=== PATIENT | female | born 1955 | race Caucasian/White ===

== ENCOUNTER 2017-03-22 18:54 | Emergency (ER) | payer OTHER ==
[2017-03-22 21:03] VITALS: BP 103/65
[2017-03-22 23:38] LABS: Urine Bacteria 1+ (Absent); Urine Bilirubin Negative (Negative); Urine Glucose Negative (Negative); Urine Nitrite Positive (Negative)
--- NOTE | 2017-03-23 00:21 | ED ---
GI/ HPI - HPI Summary HPI Summary: Patient sent to ED by previous ED which she was seen in yesterday after CC of bilateral flank pain, urgency, burning and frequency. An US of the kidneys showed moderate left hydronephrosis with no solid mass or obstruction identified. Patient has a history of pyelonephritis, nephrolithiasis and hydronephrosis within the past year. She also has associated UTI's. She was called this afternoon today and was told to come to the ED based on the findings of the US. It is unclear if they had known this information ahead of time or not prior to discharging her. She was given scripts for clindamycin and pyrimidine. She continues with urgency and frequency, but denies burning so has not taken the pyrimidine recently. She continues to have flank pain, but is localized to the left. Denies abdominal pain. Denies fevers, but endorses chills. [place] history [place] bladder [place] - History of Current Complaint Chief Complaint: EDUrogenitalProblems Time Seen by Provider: 03/22/17 20:45 Stated Complaint: PAINFUL URINATION Hx Obtained From: Patient Onset/Duration: Started Days Ago Timing: Constant Severity: Moderate Current Severity: Moderate Pain Intensity: 5 Location of Pain: Flank Pain Characteristics: Cramping Pain Radiates to: Flank Associated Signs and Symptoms: Positive: UTI Symptoms Alleviating Factor(s): Nothing - Risk Factors GI Bleed Risk Factor(s): Negative Spontaneous AB Risk Factor(s): Negative Placental Abruption Risk Factor(s): Negative Ectopic Risk Factor(s): Maternal Age ^ 30 Ovarian Torsion Risk Factor(s): Negative - Allergy/Home Medications Allergies/Adverse Reactions: Allergies Allergy/AdvReac Type Severity Reaction Status Date / Time No Known Allergies Allergy Verified 03/22/17 20:58 PMH/Surg Hx/FS Hx/Imm Hx Previously Healthy: Yes - Surgical History Surgery Procedure, Year, and Place: BLADDER PROLAPSE - Immunization History Hx Pertussis Vaccination: No Immunizations Up to Date: Yes Infectious Disease History: No Infectious Disease History: Denies: Traveled Outside the [place] in Last 30 Days - Social History Occupation: Unemployed Lives: With Family Alcohol Use: None Hx Substance Use: No Substance Use Type: Reports: None Hx Tobacco Use: No Smoking Status (MU): Never Smoked Tobacco Do You Chew or Dip Tobacco: No Review of Systems Positive: Chills Eyes: Negative Cardiovascular: Negative Respiratory: Negative Gastrointestinal: Negative Positive: see HPI, dysuria, frequency, flank pain, urgency Musculoskeletal: Negative Skin: Negative Neurological: Negative All Other Systems Reviewed And Are Negative: Yes Physical Exam Triage Information Reviewed: Yes Vital Signs On Initial Exam: Initial Vitals Temp Pulse Resp BP Pulse Ox 97.4 F 71 20 132/68 100 03/22/17 19:02 03/22/17 19:02 03/22/17 19:02 03/22/17 19:02 03/22/17 19:02 Vital Signs Reviewed: Yes Appearance: Positive: Well-Appearing, No Pain Distress, Well-Nourished Skin: Positive: Warm, Skin Color Reflects Adequate Perfusion Head/Face: Positive: Normal Head/Face Inspection Eyes: Positive: WEI, Conjunctiva Clear Neck: Positive: Supple, No Lymphadenopathy Respiratory/Lung Sounds: Positive: Clear to Auscultation, Breath Sounds Present Cardiovascular: Positive: RRR, Pulses are Symmetrical in both Upper and Lower Extremities Abdomen Description: Positive: Soft Musculoskeletal: Positive: Normal Neurological: Positive: Sensory/Motor Intact, Alert, Oriented to Person Place, Time, Speech Normal Psychiatric: Positive: Normal AVPU Assessment: Alert - Rodríguez Coma Scale Coma Scale Total: 15 Diagnostics - Vital Signs Vital Signs Temp Pulse Resp BP Pulse Ox 03/22/17 20:51 98.9 F 65 17 103/65 95 03/22/17 19:02 97.4 F 71 20 132/68 100 - Laboratory Lab Results: Lab Results 03/22/17 Range/Units 19:03 Urine Color Tiffanie Urine Appearance Clear Urine pH 6.0 (5-9) Ur Specific [place] 1.015 (1.010-1.030) Urine Protein Negative (Negative) Urine Ketones Negative (Negative) Urine Blood Negative (Negative) Urine Nitrate Positive H (Negative) Urine Bilirubin Negative (Negative) Urine Urobilinogen Positive H (Negative) Ur Leukocyte Esterase 2+ H (Negative) Urine WBC (Auto) 3+(>20/hpf) H (Absent) Urine RBC (Auto) 2+(6-10/hpf) H (Absent) Ur Squamous Epith Cells Present H (Absent) Urine Bacteria 1+ H (Absent) Urine Glucose Negative (Negative) Urine Ascorbic Acid * H (Negative) Result Diagrams: 03/23/17 00:45 03/23/17 00:45 Lab Statement: Any lab studies that have been ordered have been reviewed, and results considered in the medical decision making process. GIGU Course/Dx - Course Course Of Treatment: Although US performed yesterday at [facility] ED, will perform CT abd/pelvis to look for calculi. UA performed. WBC and leuks seen. Labs WNL. Patient experiencing urgency, frequency and pain on urination. Dark urine noted. No abnormal vaginal discharge or bleeding. CVA tenderness bilaterally. CT shows 5.2 X 2.2 mm obstructing distal left ureteral stone at the left UVJ. Moderate to severe left hydronephrosis. No Urology oncall at [facility]. [facility] called who agreed to accept patient, but stated d/t stable condition with normal white count and afebrile, we should send home. Spoke with Dr. Betts who agreed that we can send a patient home with anything less than 6mm ([facility] stated 8mm). Provider spoke with patient who preferred to go home despite the providers suggestion to be transferred. Ok to send home if she follows up with Dr. Coello and go to [facility] is symptoms worsen during the weekend. - Diagnoses Differential Diagnoses - Female: Ovarian Cyst, Pyelonephritis, Urinary Tract Infection, Ureteral Calculi Provider Diagnoses: Hydronephrosis, Obstruction of left ureteropelvic junction due to stone Discharge - Discharge Plan Condition: Stable Disposition: HOME Prescriptions: Sulfamethox/Trimethoprim DS* [Bactrim DS 800/160 TAB*] 1 tab PO BID #9 tab MDD 2 Sulfamethox/Trimethoprim DS* [Bactrim DS 800/160 TAB*] 1 tab PO BID #9 tab Tamsulosin CAP* [Flomax CAP*] 0.4 mg PO BEDTIME #10 cap Patient Education Materials: Hydronephrosis (ED) Referrals: No Primary Care Phys,NOPCP [Primary Care Provider] - Vick Coello MD [Medical Doctor] - Additional Instructions: Follow up with Dr. Coello. If symptoms become worse this weekend, you develop a fever, worsening pain or are having difficulty urinating, please go to the [facility] ED. Take medications as prescribed to you. Drink plenty of fluids. Supplement with cranberry or marcial juice. You may also take an over the counter cranberry supplement. If you have any questions about this, you may ask your pharmacist. If your symptoms have not improved in 1-2 days, if you develop fever, sweats or chills, please go to your emergency room, or call your PCP. Antibiotics were prescribed to you. Please take as directed. Supplement with over the counter probiotics on the opposite schedule of your antibiotic to prevent secondary infections. Do not take together as they may counteract each other. Pyridium: This medication is used to treat pain, burning, increased urination, and increased urge to urinate. These symptoms are usually caused by infection, injury, surgery, catheter, or other conditions that irritate the lower urinary tract. Pyridium will treat the symptoms of a urinary tract infection, but this medication does not treat the actual infection. Take the antibiotic that your doctor prescribes to treat your infection. Pyridium will most likely darken the color of your urine to an orange or red color. This is a normal effect and is not cause for alarm unless you have other symptoms such as pale or yellowed skin, fever, stomach pain, nausea, and vomiting. Darkened urine may also cause stains to your underwear, which may or may not be removed by laundering. It can also permanently stain soft contact lenses, and you should not wear them while taking this medicine.
[2017-03-23 01:17] LABS: Hematocrit 35 % (35-47); Hemoglobin 11.6 g/dl (12.0-16.0); Mean Corpuscular HGB Conc 33 g/dl (31-36); Mean Corpuscular Hemoglobin 31 pg (27-31); Mean Corpuscular Volume 95 fL (80-97); Mean Platelet Volume 9 um3 (7.4-10.4); Red Cell Distribution Width 13 % (10.5-15); White Blood Count 6.6 10^3/ul (3.5-10.8)
[2017-03-23 01:28] LABS: ALT 26 U/L (7-52); AST 21 U/L (13-39); Albumin 3.6 g/dL (3.2-5.2); Alkaline Phosphatase 72 U/L (34-104); Anion Gap 5 mmol/L (2-11); BUN/Creatinine Ratio 22.2 (8-20); Blood Urea Nitrogen 14 mg/dL (6-24); C Reactive Protein < 1.00 mg/L (< 5.00); CO2 Carbon Dioxide 26 mmol/L (22-32); Calcium 9.2 mg/dL (8.6-10.3); Chloride 106 mmol/L (101-111); EGFR Non-African American 96.4 (>60); Globulin 2.9 g/dL (2-4); Glucose 93 mg/dL (70-100); Potassium 3.8 mmol/L (3.5-5.0); Sodium 137 mmol/L (133-145); Total Protein 6.5 g/dL (6.4-8.9)
[2017-03-23] MEDS ORDERED: Acetaminophen TAB* 325 MG PO PRN (01:37)
[2017-03-23] MEDS ORDERED: Morphine INJ* 2 MG/ML 1 ML SYRINGE IV PRN (01:37)
[2017-03-23] MEDS ORDERED: Ondansetron INJ* 2 MG/ML VIAL IV PRN (01:37)
[2017-03-23] MEDS ORDERED: NS 0.9% 1000 ML* 1,000 ML IV SCH (01:45)
[2017-03-23] MEDS ORDERED: Tamsulosin CAP* 0.4 MG PO SCH ×2 (02:00→21:00)
[2017-03-23] MEDS ORDERED: Sulfamethox/Trimethoprim DS 800/160* TAB PO ONE (02:17)
[2017-03-23] MEDS ORDERED: NIFEdipine ER TAB* 30 MG PO SCH (09:00)
--- NOTE | 2017-03-23 10:24 | RAD ---
CLINICAL HISTORY: Dysuria. Surgical history includes gastric bypass. COMPARISON: None TECHNIQUE: Noncontrast CT examination of the abdomen and pelvis from the lung bases through the initial tuberosities. FINDINGS: VISUALIZED LUNG BASES: Groundglass opacification is noted the bilateral dependent lung bases. The lungs are otherwise clear without pleural effusion. ABDOMEN AND PELVIS: Evaluation of the solid organs and vasculature is limited without intravenous contrast. Postsurgical changes related to gastric bypass surgery are noted. There is no evidence of bowel leak or obstruction. The liver, spleen, pancreas and adrenal glands are grossly normal in appearance. The gallbladder is surgically absent. The right kidney is normal in appearance without focal mass, calcification or signs of hydronephrosis. There is a moderate degree of left-sided hydroureteronephrosis. At the lower pole of the left renal collecting system is a cluster of stones measuring just under 6 mm. In the distal left ureter just proximal to the left ureterovesical junction there is a 5 mm calcification (axial image 158). There are no calcifications seen in the urinary bladder lumen. The small and large bowel are not distended.The patient's normal, partially gas-filled appendix is identified in the right lower quadrant (image 127). There is no gross retroperitoneal or mesenteric lymphadenopathy. The pelvic viscera is normal in appearance. The abdominal aorta and iliac arteries are normal in course and diameter. Degenerative changes of the thoracic and lumbar spine include nonspecific straightening of the normal lumbar lordosis. There is loss of intervertebral disc height, marginal osteophyte formation as well as vacuum disc phenomenon at L3-L5. Endplate sclerosis is noted at L3/L4 and L4/L5. There is a very faint degree of anterolisthesis of L4 over L5.There are no sinister bone lesions. IMPRESSION: 1. There is a 5 mm calcification in the distal left ureter just proximal to the ureterovesical junction with ipsilateral moderate hydroureter nephrosis. 2. Additional chronic, degenerative and iatrogenic findings as described in the body of the report.
--- NOTE | 2017-03-26 17:16 | PN ---
Progress Note - Progress Note Note: Patient notified to stop antibiotic she was discharged with and to begin the macrobid that is sensitive to her culture results. This was sent to her pharmacy. No further action needed.
== END 2017-03-23 02:36 | disposition home or self-care (01) ==
LOC: ED 18:54
DX: N13.0 Hydronephrosis with ureteropelvic junction obstruction (principal); N13.30 Unspecified hydronephrosis
CPT/HCPCS: 36415; 74176; 80053; 81003; 81015; 83605; 84702; 85025; 86140; 87077; 87086; 87186; 96374; 99282; A9270-GY